=== PATIENT | female | born 1965 | race Caucasian/White ===

== ENCOUNTER → 2018-10-12 | Outpatient (CLI) | payer MEDICAID | LOC: BMCIMAGING 11:09 | PROVIDERS: ATTEND Family Medicine | DX: N60.01 Solitary cyst of right breast (principal) ==

== ENCOUNTER → 2019-01-12 | Outpatient (CLI) | payer MEDICAID | LOC: FIMAGING 18:35 ==

== ENCOUNTER → 2019-01-12 | Outpatient (CLI) | payer MEDICAID | LOC: BMCIMAGING 10:52 ==